=== PATIENT | male | born 1950 ===

== ENCOUNTER 2020-03-21 21:12 | Emergency (ER) | payer SELFPAY ==
[~2020-03-21] VITALS: Ht 175.3 cm; Wt 71.0 kg
[2020-03-21 21:13] VITALS: BP 128/73
[2020-03-21 23:06] LABS: BASOPHILS # (AUTO) 0.03 x10^3/uL (0-0.1); BASOPHILS % (AUTO) 0 % (0-1); EOSINOPHILS # (AUTO) 0.59 x10^3/uL (0-0.4); EOSINOPHILS % (AUTO) 7 % (1-7); LYMPHOCYTES # (AUTO) 2.14 x10^3/uL (1-3.4); LYMPHOCYTES % (AUTO) 24 % (22-44); MD NO; MEAN CORPUSCULAR HEMOGLOBIN 31.4 pg (27.5-34.5); MEAN CORPUSCULAR HGB CONC 32.6 g/dL (33.2-36.2); MEAN CORPUSCULAR VOLUME 96.3 fL (81-97); MEAN PLATELET VOLUME 7.9 fL (7.4-10.4); MONOCYTES # (AUTO) 0.64 x10^3/uL (0.2-0.8); MONOCYTES % (AUTO) 7 % (2-9); NEUTROPHILS # (AUTO) 5.55 x10^3/uL (1.8-6.8); NEUTROPHILS % (AUTO) 62 % (42-75); PLATELET COUNT 298 x10^3/uL (130-400); RED BLOOD COUNT 4.82 x10^6/uL (4.38-5.82); RED CELL DISTRIBUTION WIDTH 14.5 % (9.4-14.8)
[2020-03-21 23:15] LABS: ALBUMIN 3.7 g/dL (3.4-5.0); ANION GAP 4 mmol/L (5-15); CALCIUM 10.5 mg/dL (8.5-10.1); CHLORIDE 108 mmol/L (98-107); CREATININE 1.08 mg/dL (0.7-1.3)
--- NOTE | 2020-03-21 23:42 | NUR ---
PT REQUESTED CRACKERS. EXPLAINED TO PT THAT WE WOULD WAIT UNTIL THE TEST RESULTS WERE BACK AND THE MD GAVE THE OK FOR HIM TO EAT HE COULD HAVE CRACKERS. UPON BEING CLEARED FOR DC. PT WAS PROVIDED WITH 4 CRACKER PACKS AND 2 GRAM CRACKER PACKS. WELL A BOTTLE OF WATER. PT BECAME AGITATED AND DEMANED A HOT PLATE OF FOOD. "I WANT A FUCKN HOT SANDWHICH. YOU WILL BE HEARING FROM ME AGAIN." THEN THE PT REFUSED TO SIGN THE DC PAPERWORK. PT WAS ALSO GIVEN A CANE TO HELP HIM WALK.
== END 2020-03-21 23:46 | disposition home or self-care (01) ==
LOC: ED 23:16
DX: G89.11 Acute pain due to trauma (principal); M79.671 Pain in right foot; R55 Syncope and collapse; R42 Dizziness and giddiness; R11.0 Nausea
CPT/HCPCS: 36415; 80048; 80307; 82040; 85025; 93005; 99285